=== PATIENT | male | born 1995 | race African-American/Black ===

== ENCOUNTER 2021-10-15 03:01 | Emergency (ER) | payer OTHER ==
[2021-10-15] MEDS ORDERED: levETIRAcetam 500 MG TAB ONE (03:47)
--- NOTE | 2021-10-15 04:32 | ER ---
Nurse's Notes [facility] Name: Ira Mcneill Age: 26 yrs Sex: Male : 1995 Arrival Date: 10/15/2021 Time: 03:04 Bed 7 Private MD: Diagnosis: Other seizures;Contusion of scalp, initial encounter;Headache Presentation: 10/15 03:05 Chief complaint: EMS states: "His girlfriend stated that he has had two seizures today. tw5 His last one was 45 min ago while he was outside smoking. He fell and hit the back of his head on the concrete.". Coronavirus screen: Vaccine status: Patient reports receiving the 2nd dose of the covid vaccine. unknown. Ebola Screen: Patient negative for fever greater than or equal to 101.5 degrees Fahrenheit, and additional compatible Ebola Virus Disease symptoms Patient denies exposure to infectious person. Patient denies travel to an Ebola-affected area in the 21 days before illness onset. Initial Sepsis Screen: Does the patient meet any 2 criteria? No. Patient's initial sepsis screen is negative. Does the patient have a suspected source of infection? No. Patient's initial sepsis screen is negative. Risk Assessment: Do you want to hurt yourself or someone else? Patient reports no desire to harm self or others. Onset of symptoms. 03:05 Method Of Arrival: EMS: [facility] tw5 03:05 Acuity: GIL 3 tw5 Triage Assessment: 03:11 General: Appears in no apparent distress. Behavior is cooperative, appropriate for age. tw5 Pain: Complains of pain in scalp Pain currently is 5 out of 10 on a pain scale. Neuro: Level of Consciousness is awake, alert, obeys commands, Oriented to person, place, time, situation. Historical: - Allergies: 03:11 No Known Allergies; tw5 - Home Meds: 03:11 Depakote Oral [Active]; tw5 - PMHx: 03:11 Seizure; tw5 - PSHx: 03:11 None; tw5 - Immunization history:: Flu vaccine is not up to date. - Social history:: Smoking status: Patient reports the use of cigarette tobacco products, smokes one pack cigarettes per day. Screenin:15 Abuse screen: Denies threats or abuse. Nutritional screening: No deficits noted. vc1 Tuberculosis screening: No symptoms or risk factors identified. Fall Risk None identified. Assessment: 03:15 Reassessment: See triage assessment. vc1 04:00 Reassessment: No changes from previously documented assessment. vc1 04:30 Reassessment: pt laying with eyes closed. No complaints at this time. vc1 Vital Signs: 03:05 BP 122 / 73; Pulse 62; Resp 12; Temp 98; Pulse Ox 99% ; Weight 65.77 kg; Height 5 ft. 7 tw5 in. (170.18 cm); Pain 5/10; 03:05 Body Mass Index 22.71 (65.77 kg, 170.18 cm) tw5 [place] Coma Score: 03:11 Eye Response: spontaneous(4). Verbal Response: oriented(5). Motor Response: obeys tw5 commands(6). Total: 15. ED Course: 03:04 Patient arrived in ED. vc1 03:05 Jose Oliver DO is Attending Physician. ms3 03:09 Triage completed. tw5 03:11 Arm band placed on. tw5 03:12 Patient has correct armband on for positive identification. Side rails up X2. Seizure tw5 precautions initiated. 03:28 Nicole Miranda RN is Primary Nurse. vc1 03:44 CT Head C Spine In Process Unspecified. EDMS 04:31 Darryl Leal MD is Referral Physician. ms3 04:40 No provider procedures requiring assistance completed. Patient did not have IV access vc1 during this emergency room visit. Administered Medications: 03:41 Drug: Keppra (levETIRAcetam) 1000 mg Route: PO; vc1 04:10 Follow up: Response: No adverse reaction vc1 Medication: 05:17 VIS not applicable for this client. vc1 Outcome: 04:31 Discharge ordered by . ms3 04:40 Discharged to home ambulatory. vc1 04:40 Condition: stable 04:40 Discharge instructions given to patient, Instructed on discharge instructions, follow up and referral plans. medication usage, Demonstrated understanding of instructions, follow-up care, medications, Prescriptions given X 1. 04:43 Patient left the ED. vc1 Signatures: Dispatcher [employer] EDMS Jose Oliver DO DO ms3 Chantal Riddle tw5 Nicole Miranda RN RN vc1 Corrections: (The following items were deleted from the chart) 03:11 03:11 PMHx: None; tw5 tw5
--- NOTE | 2021-10-15 04:32 | EDPHYS ---
Physician Documentation [facility] Name: Ira Mcneill Age: 26 yrs Sex: Male : 1995 Arrival Date: 10/15/2021 Time: 03:04 Bed 7 Private MD: ED Physician Jose Oliver HPI: 10/15 03:18 This 26 yrs old Black Male presents to ER via EMS with complaints of Seizure. ms3 03:18 The patient presents after having a single isolated seizure. Character of seizure(s): ms3 Loss of consciousness: the patient experienced loss of consciousness, Motor activity: the motor activity is unknown, Incontinence: none, Apnea: the patient did not experience apnea, Circulation: the patient did not experience evidence of pulse disturbance. Seizure onset: just prior to arrival. Context: the seizure(s) was witnessed, by a significant other, girlfriend. Seizure Hx: Last seizure: The patient's last seizure was approximately 4 month(s) ago. Associated injury: Head/face: abrasion, contusion. EMS care: none. Current symptoms: headache, that is moderate. Historical: - Allergies: 03:11 No Known Allergies; tw5 - Home Meds: 03:11 Depakote Oral [Active]; tw5 - PMHx: 03:11 Seizure; tw5 - PSHx: 03:11 None; tw5 - Immunization history:: Flu vaccine is not up to date. - Social history:: Smoking status: Patient reports the use of cigarette tobacco products, smokes one pack cigarettes per day. ROS: 03:19 Constitutional: Negative for fever, and chills. Eyes: Negative for injury, pain, ms3 redness, and discharge, Neck: Negative for injury, pain, and swelling, Cardiovascular: Negative for chest pain, and palpitations. Respiratory: Negative for shortness of breath, cough, wheezing, and pleuritic chest pain. 03:19 Abdomen/GI: Negative for abdominal pain, nausea, vomiting, diarrhea, and constipation, MS/Extremity: Negative for injury and deformity. 03:19 Neuro: Positive for loss of consciousness, seizure activity. 03:19 All other systems are negative. Exam: 03:19 Constitutional: This is a well developed, well nourished patient who is awake, alert, ms3 and in no acute distress. 03:19 Neck: Trachea midline, no cervical lymphadenopathy. Supple, full range of motion without nuchal rigidity, or vertebral point tenderness. No Meningismus. Chest/axilla: Normal chest wall appearance and motion. Nontender with no deformity. Cardiovascular: Regular rate and rhythm with a normal S1 and S2. No gallops, murmurs, or rubs. Normal PMI, no JVD. No pulse deficits. Respiratory: Lungs have equal breath sounds bilaterally, clear to auscultation and percussion. No rales, rhonchi or wheezes noted. No increased work of breathing, no retractions or nasal flaring. Abdomen/GI: Soft, non-tender, with normal bowel sounds. No distension or tympany. No guarding or rebound. No evidence of tenderness throughout. Skin: Warm, dry with normal turgor. Normal color with no rashes, no lesions, and no evidence of cellulitis. MS/ Extremity: Pulses equal, no cyanosis. Neurovascular intact. Full, normal range of motion. Psych: Awake, alert, with orientation to person, place and time. Behavior, mood, and affect are within normal limits. 03:19 Head/face: Noted is abrasion(s), that are moderate, of the scalp, contusion, that is superficial. Vital Signs: 03:05 BP 122 / 73; Pulse 62; Resp 12; Temp 98; Pulse Ox 99% ; Weight 65.77 kg; Height 5 ft. 7 tw5 in. (170.18 cm); Pain 5/10; 03:05 Body Mass Index 22.71 (65.77 kg, 170.18 cm) tw5 [place] Coma Score: 03:11 Eye Response: spontaneous(4). Verbal Response: oriented(5). Motor Response: obeys tw5 commands(6). Total: 15. MDM: 03:17 Patient medically screened. ms3 03:19 Data reviewed: vital signs, nurses notes. ms3 04:35 Data interpreted: [employer]: rate is 58 beats/min, rhythm is sinus bradycardia, ms3 with no ectopy, Interpretation: normal rhythm, bradycardia. Counseling: I had a detailed discussion with the patient and/or guardian regarding: the historical points, exam findings, and any diagnostic results supporting the discharge/admit diagnosis, radiology results, the need for outpatient follow up, to return to the emergency department if symptoms worsen or persist or if there are any questions or concerns that arise at home. ED course: Discussed CT head and neck, physical exam findings with patient. Patient to follow-up with Dr. Leal in 2 to 3 days. Patient understands and agrees with plan. All questions were answered. Return precautions discussed include worsening symptoms, or any other concerns. On reevaluation patient symptoms improved, patient is alert and oriented x4, no apparent distress, nontoxic, ambulatory in emergency department, tolerating p.o. Discussed with patient to not drive, operate heavy machinery, take a bath, or place himself where he could be harmed until cleared by neurology.. 10/15 03:17 Order name: CT Head C Spine ms3 Administered Medications: 03:41 Drug: Keppra (levETIRAcetam) 1000 mg Route: PO; vc1 04:10 Follow up: Response: No adverse reaction vc1 Disposition Summary: 10/15/21 04:31 Discharge Ordered Location: Home ms3 Condition: Stable ms3 Diagnosis - Other seizures ms3 - Contusion of scalp, initial encounter ms3 - Headache ms3 Followup: ms3 - With: Darryl Leal MD - When: 2 - 3 days - Reason: Recheck today's complaints Discharge Instructions: - Discharge Summary Sheet ms3 - General Headache Without Cause ms3 Forms: - Medication Reconciliation Form ms3 - Thank You Letter ms3 - Antibiotic Education ms3 - Prescription Opioid Use ms3 Prescriptions: - Keppra 500 mg Oral Tablet - take 1 tablet by ORAL route every 12 hours; 30 tablet; Refills: 0, Product ms3 Selection Permitted Signatures: Dispatcher [employer] EDW[place] Jose Oliver DO DO ms3 Chantal Riddle tw5 Nicole Miranda RN RN vc1 Corrections: (The following items were deleted from the chart) 03:11 03:11 PMHx: None; tw5 tw5
[2021-10-15 04:49] VITALS: BP 122/73; TEMP 98; O2SAT 99
--- NOTE | 2021-10-16 09:26 | RAD REPORT ---
EXAM DESCRIPTION: CT Head and Cervical Spine Without Intravenous Contrast CLINICAL HISTORY: The patient is 26 years old and is Male; Fall TECHNIQUE: Axial computed tomography images of the head/brain and cervical spine without intravenous contrast. Sagittal and coronal reformatted images were created and reviewed. This CT exam was pe rformed using one or more of the following dose reduction techniques: automated exposure control, a djustment of the mA and/or kV according to patient size, and/or use of iterative reconstruction techn ique. COMPARISON: No relevant prior studies available. FINDINGS: Brain: Unremarkable. No hemorrhage. No significant white matter disease. No edema. Ventricles: Unremarkable. No ventriculomegaly. Skull: No acute fracture. Sinuses: Unremarkable as visualized. No acute sinusitis. Mastoid air cells: Unremarkable as visualized. No mastoid effusion. Vertebrae: Unremarkable. No acute fracture. Normal alignment. Discs/spinal canal/neural foramina: No acute findings. No spinal canal stenosis. Soft tissues: Unremarkable. IMPRESSION: No acute intracranial abnormality. No acute findings in the cervical spine. Electronically signed by: Armani Cage MD 10/15/2021 4:22 AM CDT Due to temporary technical issues with the PACS/Fluency reporting system, reports are being signed by the in house radiologists without review as a courtesy to insure prompt reporting. The interpreting radiologist is fully responsible for the content of the report.
== END 2021-10-15 04:43 | disposition home or self-care (01) ==
LOC: ER 03:01
DX: G40.89 Other seizures (principal); S00.03XA Contusion of scalp, initial encounter; R51.9 Headache, unspecified; F17.210 Nicotine dependence, cigarettes, uncomplicated
CPT/HCPCS: 70450; 72125; 99284